=== PATIENT | male | born 1955 | race Caucasian/White ===

== ENCOUNTER 2025-02-03 18:21 | Emergency (ER) | payer MEDICARE, BC, SELFPAY ==
[2025-02-03 18:22] VITALS: BP 157/78
--- NOTE | 2025-02-03 22:27 | ED.GENMED ---
History of Present Illness
General
Chief Complaint: Skin Surface Trauma
Source: patient
Exam Limitations: none
Time Seen by Provider: 02/03/25 22:15
History of Present Illness
History of Present Illness:
Patient caught his leg on a sticker brush. This occurred while playing golf. Significant bleeding. Went to urgent care and because of the nature of the bleeding they felt this was likely arterial and he should go to an ER. Last tetanus is
unknown.
Past History
Past History
ED Past Medical History: HTN
ED Past Surgical History: Orthopedic and Other (Mohs surgery)
Review of Systems
Review of Systems
All Other Systems: Not applicable
Phy Exam
Physical Exam
Physical Exam:
General: Nontoxic appearing in no distress
Skin: Warm and dry, no rash
Neuro: Alert, nontoxic, grossly nonfocal
Psychiatric: Good eye contact and appropriate
Musculoskeletal: Left lower leg wrapped. Upon removing the pressure wrapping no current bleeding. Abrasion to the left lower leg. Site of puncture is the middle of a plexus of varicosity veins.
Course
Orders/Labs/Results
Orders:
Orders
02/03/25 22:24
Tetanus/Diphth/Acelpertussis [Adacel] 0.5 ml IM .ONCE ONE
Vital Signs
Initial and Last Documented VS:
Initial Vital Signs
Temp Pulse Resp BP Pulse Ox
98 F 96 16 157/78 98
02/03/25 18:22 02/03/25 18:22 02/03/25 18:22 02/03/25 18:22 02/03/25 18:22
Last Documented Vital Signs
Temp Pulse Resp BP Pulse Ox
98 F 96 16 157/78 98
02/03/25 18:22 02/03/25 18:22 02/03/25 18:22 02/03/25 18:22 02/03/25 18:22
MDM/Problems Addressed
Differential Diagnosis Includes:
Area was cleaned. Dermabond placed over bleeding site. No further bleeding. Pressure dressing and follow-up
*Pulse Oximetry
SaO2: 98
Oxygen Mode of Delivery: Room air
Patient hypoxic: no
*Critical Care Note
Total Time (30-74mins, 75-104mins- exclusive of procedures): Not Applicable
ED Attending Note
-
Portions of this chart may have been created with voice recognition software.� Occasional wrong word or��sound alike� substitutions may have occurred due to the inherent limitations of voice recognition software.
Discharge Plan
Departure
Patient Disposition: Home (Routine Discharge)
Date of Disposition: 02/03/25
Time of Disposition: 22:28
Patient with high blood pressure during this ER visit?: Yes
Discharge Problem:
Bleeding varicose vein
Instructions: Varicose Veins (DC), BLOOD PRESSURE
Activity Restrictions/Additional Instructions:
Change pressure dressing daily. Watch for infection
Infection symptoms would be redness drainage warmth tenderness.
Interventions
Interventions:
*Risk Screen - Suicide Last Done: 02/03/25 18:22
*Neglect/Abuse Screening Last Done: 02/03/25 18:22
Discharge Date and Time
Print Language: NIGERIEN
[2025-02-03] MEDS: ADACEL 0.5 ML IM (22:36)
[2025-02-03 23:04] VITALS: BP 160/56
== END 2025-02-03 23:06 | disposition home or self-care (01) ==
LOC: EMR 18:21
PROVIDERS: EMERGENCY PHYSICIAN Emergency Medicine; FAMILY PHYSICIAN Internal Medicine
DX: I83.892 Varicose veins of left lower extremity with other complications (principal); S80.812A Abrasion, left lower leg, initial encounter; X58.XXXA Exposure to other specified factors, initial encounter; Z23 Encounter for immunization; I10 Essential (primary) hypertension
CPT/HCPCS: 99282; 12001; 90471; 90715